=== PATIENT | female | born 1945 | race Caucasian/White ===

== ENCOUNTER → 2020-02-06 | Outpatient (CLI) | payer MEDICARE, OTHER ==
--- NOTE | 2020-02-06 09:29 | RADIOLOGY REPORT (SQ) ---
EXAM DESCRIPTION: CT ABD/PELVIS WITH IV ORAL IMAGES COMPLETED DATE/TIME: 02/06/2020 8:10 am REASON FOR STUDY: ABD PAIN (R10.9) R10.9 UNSPECIFIED ABDOMINAL PAIN R19.7 DIARRHEA, UNSPECIFIED COMPARISON: None. TECHNIQUE: CT scan of the abdomen and pelvis performed using helical scanning technique with dynamic intravenous contrast injection. Patient was given oral contrast. Images reviewed with lung, soft ti ssue, and bone windows. Reconstructed coronal and sagittal MPR images reviewed. Delayed images for ev aluation of the urinary system also acquired. All images stored on PACS. All CT scanners at this facility use dose modulation, iterative reconstruction, and/or weight based d osing when appropriate to reduce radiation dose to as low as reasonably achievable (ALARA). [facility]: Dose Right [facility]: CareDose [facility]: Dose Right [facility]: Teradose 4D [facility]: Qeexo CONTRAST TYPE AND DOSE: contrast/concentration: Isovue 350.00 mmol/ml; Total Contrast Delivered: 70. 0 ml; Total Saline Delivered: 65.0 ml RENAL FUNCTION: Creatinine 0.9 RADIATION DOSE: CT Rad equipment meets quality standard of care and radiation dose reduction techniq ues were employed. CTDIvol: 4.6 mGy. DLP: 485 mGy-cm.. LIMITATIONS: None. FINDINGS: LOWER CHEST: Coronary atherosclerosis. Minimal linear left basilar opacities, likely atel ectasis. LIVER: Normal size. No masses. No dilated ducts. SPLEEN: Normal size. No focal lesions. PANCREAS: No masses. No significant calcifications. No adjacent inflammation or peripancreatic fluid collections. Pancreatic duct not dilated. GALLBLADDER: Single calcified gallstone. No pericholecystic inflammatory change or wall thickening. No gallbladder dilation. ADRENAL GLANDS: No significant masses or asymmetry. RIGHT KIDNEY AND URETER: No solid masses. No significant calcifications. No hydronephrosis or hyd roureter. LEFT KIDNEY AND URETER: No solid masses. Lobular cortex with areas of cortical thinning. No signif icant calcifications. No hydronephrosis or hydroureter. AORTA AND VESSELS: Aortoiliac atherosclerosis without aneurysm. No dissection. Renal arteries, SMA, c eliac without stenosis. RETROPERITONEUM: No retroperitoneal adenopathy, hemorrhage or masses. BOWEL AND PERITONEAL CAVITY: Scattered colonic diverticula. No evidence of intestinal obstruction. No visualized focal bowel wall thickening. APPENDIX: Normal. PELVIS: Mild circumferential bladder wall thickening. No pelvic adenopathy or free fluid. ABDOMINAL WALL: No masses. No hernia. Stimulator device within the right gluteal regions with leads at the presacral space. BONES: No acute bony abnormality. No suspicious osseous lesions. OTHER: No other significant finding. IMPRESSION: 1. Mild circumferential bladder wall thickening, recommend correlation with urinalysis. 2. No other evidence of acute intra-abdominal/pelvic process. 3. Coronary atherosclerosis. Diverticulosis. TECHNICAL DOCUMENTATION: JOB ID: [id number] Quality ID # [id number]: Final reports with documentation of one or more dose reduction techniques (e.g., Au tomated exposure control, adjustment of the mA and/or kV according to patient size, use of iterative reconstruction technique) 2010 [employer]- All Rights Reserved Reading location - IP/workstation name: [email or web address]
== END ==
LOC: RAD 07:36
PROVIDERS: ATTEND Surgery
DX: K57.30 Diverticulosis of large intestine without perforation or abscess without bleeding (principal); R10.9 Unspecified abdominal pain; I25.10 Atherosclerotic heart disease of native coronary artery without angina pectoris
CPT/HCPCS: 74177; 82565

== ENCOUNTER 2020-02-18 10:40 | Day surgery (SDC) | payer MEDICARE, OTHER ==
[2020-02-13 11:36] LABS: ANION GAP 9 (5-19); BLOOD UREA NITROGEN 18 mg/dL (7-20); CALCIUM 9.5 mg/dL (8.4-10.2); CARBON DIOXIDE 25 mmol/L (22-30); CHLORIDE 106 mmol/L (98-107); GLUCOSE 110 mg/dL (75-110)
--- NOTE | 2020-02-13 18:20 | EKG REPORT ---
SEVERITY:- ABNORMAL ECG - SINUS RHYTHM INCOMPLETE RBBB AND LAFB BORDERLINE R WAVE PROGRESSION, ANTERIOR LEADS CONSIDER OLD ANTERIOR PR : Confirmed by: Satish Cormier MD 13-Feb-2020 18:19:16
[2020-02-18] MEDS ORDERED: PROPOFOL INJ 200 MG/20 ML VIAL IV ONE ×2 (11:09→11:10)
--- NOTE | 2020-02-18 13:36 | Operative Report ---
Nonrecallable Operative Report DATE OF SURGERY: 02/18/20 PREOPERATIVE DIAGNOSIS: colonic bleed POSTOPERATIVE DIAGNOSIS: colonic bleed OPERATION: colonosocpy SURGEON: JACK PALACIOS ANESTHESIA: Moderate Sedation TISSUE REMOVED OR ALTERED: none COMPLICATIONS: none ESTIMATED BLOOD LOSS: 0 INTRAOPERATIVE FINDINGS: see note PROCEDURE: Patient was brought to the operating awake alert stable condition placed on the upper table supine position given IV sedation then placed in a left lateral decubitus position. After appropriate timeout site verification the procedure commence The Olympus colonoscope was passed into the rectum and easily traversed the rectum into the sigmoid colon we then stented the descending colon to the splenic flexure identified the transverse colon manipulated the scope to the hepatic flexure and then to the ileocecal valve and the a sending colon. The scope was then slowly withdrawn over the next 12 minutes. As we came to the ascending colon we noted multiple diverticula that were uncomplicated and no evidence of bleeding there were no significant mucosal abnormalities we then traversed the hepatic flexure into the transverse colon again multiple diverticula numerous with white either widemouth or narrow mouth but no evidence of any bleeding or recent bleed. We then traversed the splenic flexure down the descending colon again numerous diverticulosis. As we reached 50 cm there was a diminutive polyp at 50 cm it was small and flat and we were unable to obtain a biopsy of the secondary to the anatomic position. However the scope was then slowly withdrawn again seen moderate to severe diverticulosis throughout the entire colon but no evidence of active bleeding. There were no masses. Impression moderate to severe diverticulosis. #2 small diminutive polyp unable to be biopsied at 50 cm. #3 no evidence of acute bleed. Recommendations We will continue observation patient will require repeat colonoscopy in 1 to 2 years.
--- NOTE | 2020-02-18 13:41 | Discharge Summary ---
Discharge Summary (SDC) - Discharge Final Diagnosis: hx of colonic bleed Date of Surgery: 02/18/20 Discharge Date: 02/18/20 Condition: Good Forms: ASU Anesthesia D/C Instruction, Discharge POC-Surgical Service Treatment or Instructions: MONITOR FOR BLACK OR TARRY STOOLS, MONITOR FOR BLEEDING, MONITOR FOR ABDOMINAL SWELLING, MONITOR FOR FEVER 101F OR GREATER Referrals: JACK PALACIOS MD [ACTIVE STAFF] - 02/29/20 11:00 am Discharge Diet: As Tolerated Discharge Activity: Activity As Tolerated Report the Following to Your Physician Immediately: Shortness of Breath, Nausea, Vomiting, Unusual Bleeding - needs a f/u in surgery clinic in 2-3 wks.
[2020-02-18 14:18] VITALS: BP 156/82
== END 2020-02-18 14:15 | disposition home or self-care (01) ==
LOC: OROUT 10:40
PROVIDERS: ATTEND Surgery
DX: K62.5 Hemorrhage of anus and rectum (principal); Z03.818 Encounter for observation for suspected exposure to other biological agents ruled out; E11.9 Type 2 diabetes mellitus without complications; I10 Essential (primary) hypertension; K21.9 Gastro-esophageal reflux disease without esophagitis; I25.10 Atherosclerotic heart disease of native coronary artery without angina pectoris; Z88.2 Allergy status to sulfonamides; Z79.82 Long term (current) use of aspirin; Z79.84 Long term (current) use of oral hypoglycemic drugs
CPT/HCPCS: 45378; 93005; 36415; 82962; 80048; 93010; U0003; J2704; C9803; 811; 87635

== ENCOUNTER → 2020-06-02 | Outpatient (CLI) | payer MEDICARE, OTHER ==
[~2020-06-02] MED LIST: REGADENOSON INJ 0.4 MG/5 ML DISP.SYRIN IV ONE
--- NOTE | 2020-06-02 12:19 | DRAGON STRESS TEST REPORT ---
Pharmacological nuclear stress test Date: 06/02/2020 Referring physician: Pascual Munson MD Performing physician: Arya Neil MD Indication: Chest pain Clinical history 74-year-old lady with medical history significant for systemic hypertension, diabetes mellitus and dyslipidemia who presented with dyspnea and chest pain. We decided to proceed with pharmacological nuclear stress test. Procedure The patient presented to the stress lab. Initially rest images were obtained according to standard protocol after the injection of 10.69 millicurie technetium 99m sestamibi. Subsequently the patient underwent pharmacological stress utilizing 0.4 mg of regadenoson intravenously. The patient's EKG and vital signs were monitored throughout the procedure. Subsequently patient was injected with 31 millicuries of technetium 99m sestamibi. After a period of rest, stress images were obtained according to standard protocol. EKG showed sinus rhythm at 70 beats per minute with incomplete right bundle branch block and left anterior fascicular block. The patient's stress EKG did not show any evidence for myocardial ischemia. There were no arrhythmias observed. Raw as well as processed rest and stress images were reviewed. There was mild to moderate gut uptake which did not interfere with the study. The rest and stress images show uniform uptake of radioactive isotope without any fixed or reversible defects to suggest myocardial ischemia or myocardial infarction. There is normal contractility post-rest. The calculated ejection fraction is 73 %. The TID ratio is 1.22. Conclusion The stress EKG is negative for myocardial ischemia There is no scintigraphic evidence of myocardial infarction or ischemia provoked by pharmacological stress. There is normal contractility post-stress. The gated left ventricular ejection fraction is 73 %. The patient will be given an appointment to discuss these results. [facility]
--- NOTE | 2020-06-02 19:12 | XCELERA REPORT ---
[address] [facility] [address] Transthoracic Echocardiogram Report Name: RUTH LOGAN Age: 74 yrs Gender: Female : 1945 Patient Status: Outpatient Patient Location: RAD Study Date: 06/02/2020 10:10 AM History: Chest pain Height: 62 in Weight: 134 lb BSA: 1.6 m2 Procedure: A complete two-dimensional transthoracic echocardiogram was performed (2D, M-mode, spectral and color flow Doppler). Reason For Study: CP Ordering Physician: MYRIAM^^^MD Performed By: John Jacques Interpretation Summary The left ventricle is hyperdynamic. The Ejection Fraction estimate is >70% The right ventricle is normal in size and function. There is a trace amount of mitral regurgitation There is no aortic valve stenosis No aortic regurgitation is present. There is a trace amount of tricuspid regurgitation There is no pericardial effusion. MMode/2D Measurements & Calculations RVDd: 2.6 cm LVIDd: 4.4 cm FS: 48.5 % Ao root diam: 3.2 cm IVSd: 0.82 cm LVIDs: 2.3 cm EDV(Teich): 87.7 ml Ao root area: 8.2 cm2 LVPWd: 0.89 cm ESV(Teich): 17.5 ml LA dimension: 3.2 cm EF(Teich): 80.1 % Doppler Measurements & Calculations MV E max gertrude: MV P1/2t max gertrude: Ao V2 max: LV V1 max P.9 cm/sec 81.1 cm/sec 134.6 cm/sec 6.4 mmHg MV A max gertrude: MV P1/2t: 97.1 msec Ao max PG: LV V1 max: 133.8 cm/sec MVA(P1/2t): 2.3 cm2 7.3 mmHg 126.9 cm/sec MV E/A: 0.61 MV dec slope: 244.6 cm/sec2 MV dec time: 0.31 sec PA V2 max: MV P1/2t-pr_phl: 77.0 cm/sec 97.1 msec PA max P.4 mmHg Left Ventricle The left ventricle is normal in size. There is mild to moderate concentric left ventricular hypertrophy. The Ejection Fraction estimate is >70%. The left ventricle is hyperdynamic. Doppler measurements suggest impaired left ventricular relaxation, which is associated with grade I/IV or mild diastolic dysfunction. No regional wall motion abnormalities noted. Right Ventricle The right ventricle is normal in size and function. Atria The right atrium is normal. The left atrium is mildly dilated. The interatrial septum is intact with no evidence for an atrial septal defect. There is no Doppler evidence for an interatrial shunt. Mitral Valve The mitral valve is grossly normal. There is no mitral valve stenosis. There is a trace amount of mitral regurgitation. Aortic Valve The aortic valve is trileaflet. The aortic valve opens well. The aortic valve is normal in structure and function. There is no aortic valve stenosis. No aortic regurgitation is present. Tricuspid Valve The tricuspid valve is normal in structure and function. There is a trace amount of tricuspid regurgitation. Tricuspid regurgitation jet envelope not well defined to measure RV systolic pressure accurately. Great Vessels The aortic root is normal size. The inferior vena cava appeared normal and decreased > 50% with respiration (RAP 5-10 mmHg). Effusions There is no pericardial effusion. : XIN^YANA^^^Yana Gilbert
== END ==
LOC: RAD 07:35
PROVIDERS: ATTEND Internal Medicine
DX: R07.9 Chest pain, unspecified (principal); I10 Essential (primary) hypertension; E78.5 Hyperlipidemia, unspecified; E11.9 Type 2 diabetes mellitus without complications
CPT/HCPCS: 93306; 93017; 78452; A9500; J2785; Q9969